=== PATIENT | female | born 1970 ===

== ENCOUNTER 2017-07-04 07:31 | Day surgery (SDC) | payer OTHER ==
[2017-07-04] MEDS ORDERED: Lactated Ringer's 1,000 ML IV ONE (08:03)
[2017-07-04] MEDS ORDERED: Lidocaine 2% MPF (5 ml) Inj ONE (08:32)
[2017-07-04] MEDS ORDERED: Propofol 10 mg/ml Inj (20 ML) ONE (08:32)
[2017-07-04] MEDS ORDERED: ePHEDrine 50 mg/ml Inj ONE (08:48)
[2017-07-04 08:59] VITALS: TEMP 97
[2017-07-04 09:11] VITALS: BP 101/52; PULSE 64; RESP 12; O2SAT 98
== END 2017-07-04 09:20 | disposition home or self-care (01) ==
LOC: H.ENDO 07:31
PROVIDERS: ATTEND Internal Medicine Gastroenterology
DX: K62.5 Hemorrhage of anus and rectum (principal); K64.8 Other hemorrhoids; K57.30 Diverticulosis of large intestine without perforation or abscess without bleeding; R10.13 Epigastric pain; K21.9 Gastro-esophageal reflux disease without esophagitis; K29.50 Unspecified chronic gastritis without bleeding
CPT/HCPCS: 43239; 45378; 88307; J2704; J3010; J7120